=== PATIENT | female | born 1945 | race Caucasian/White ===

== ENCOUNTER 2020-09-23 15:59 | Outpatient (CLI) | payer MEDICARE ==
[2020-09-23] MEDS ORDERED: EVOL140S2 INJ (16:45)
[2020-09-23] MEDS ORDERED: magnesium PO (16:45)
[2020-09-23] MEDS ORDERED: LIDO700A20 TD (16:45)
[2020-09-23] MEDS ORDERED: ESCI10TA10 PO (16:45)
[2020-09-23] MEDS ORDERED: DICL1PAT13 TD (16:45)
[2020-09-23] MEDS ORDERED: vitamin d PO (16:45)
[2020-09-23] MEDS ORDERED: NAPR-685 PO (16:45)
[2020-09-23] MEDS ORDERED: LORA-446 PO (16:45)
[2020-09-23] MEDS ORDERED: melatonin PO (16:45)
[2020-09-23] MEDS ORDERED: SITA100T PO (16:45)
[2020-09-23] MEDS ORDERED: DILT180C72 PO (16:45)
[2020-09-23] MEDS ORDERED: METF500T17 PO (16:45)
[2020-09-23] MEDS ORDERED: CYAN1TAB29 PO (16:45)
[2020-09-23] MEDS ORDERED: DULA0.75 INJ (16:45)
[2020-09-23] MEDS ORDERED: VENL150C6 PO (16:45)
[2020-09-23 17:26] LABS: ALBUMIN 3.9 g/dL (3.4-5.0); ANION GAP 8 mmol/L (5-15); CALCIUM 9.6 mg/dL (8.5-10.1); CHLORIDE 109 mmol/L (98-107)
[2020-09-23 17:29] LABS: ALANINE AMINOTRANSFERASE 91 U/L (12-78); ALKALINE PHOSPHATASE 77 U/L (45-117); BILIRUBIN,TOTAL 0.4 mg/dL (0.2-1.0); CREATININE 0.71 mg/dL (0.55-1.02); TOTAL PROTEIN 7.3 g/dL (6.4-8.2)
== END 2020-09-23 23:59 | disposition home or self-care (01) ==
LOC: STAR 15:59
PROVIDERS: ATTEND Surgery
DX: Z01.812 Encounter for preprocedural laboratory examination (principal); Z20.822 Contact with and (suspected) exposure to COVID-19; R94.31 Abnormal electrocardiogram [ECG] [EKG]
CPT/HCPCS: 36415; 80053; 93005; U0003

== ENCOUNTER 2020-09-27 06:01 | Day surgery (SDC) | payer MEDICARE ==
[~2020-09-27] VITALS: Ht 177.8 cm; Wt 116.0 kg
[~2020-09-27 06:01] MED LIST: CYAN1TAB29 PO; DICL1PAT13 TD; DILT180C72 PO; DULA0.75 INJ; ESCI10TA10 PO; EVOL140S2 INJ; LIDO700A20 TD; LORA-446 PO; METF500T17 PO; NAPR-685 PO; SITA100T PO; VENL150C6 PO; magnesium PO; melatonin PO; vitamin d PO
[2020-09-27 06:46] VITALS: BP 158/66
[2020-09-27] MEDS ORDERED: BUPIVACAINE/PF 0.5% ONE (06:56)
[2020-09-27] MEDS ORDERED: CHLORHEXIDINE 15 ML UDC PO ONE (07:00)
[2020-09-27] MEDS ORDERED: LACTATED RINGERS 1,000 ML IV SCH (07:00)
[2020-09-27] MEDS ORDERED: INDOCYANINE GREEN 25 MG VIAL ONE (07:14)
[2020-09-27] MEDS ORDERED: INDOCYANINE GREEN 25 MG VIAL IVPush STA (07:14)
[2020-09-27] MEDS ORDERED: FENTANYL PF 250 MCG/5ML ONE (07:20)
[2020-09-27] MEDS ORDERED: METOPROLOL 1 MG/ML, 5ML ONE (07:28)
[2020-09-27] MEDS ORDERED: ONDANSETRON 2MG/ML, 2ML ONE ×3 (07:28→08:13)
[2020-09-27] MEDS ORDERED: CEFAZOLIN 1,000 MG ONE ×2 (08:10→08:13)
[2020-09-27] MEDS ORDERED: ROCURONIUM 10MG/ML,5ML ONE ×2 (08:10→08:13)
[2020-09-27] MEDS ORDERED: SUGAMMADEX 200 MG/2 ML IVPush ONE (08:10)
[2020-09-27] MEDS ORDERED: PROPOFOL 10 MG/ML, 20ML ONE ×2 (08:10→08:13)
[2020-09-27] MEDS ORDERED: GLYCOPYRROLATE 0.2MG/1ML, 5ML ONE ×2 (08:10→08:13)
[2020-09-27] MEDS ORDERED: NEOSTIGMINE 1 MG/ML, 10ML ONE ×2 (08:10→08:13)
[2020-09-27] MEDS ORDERED: KETOROLAC 30 MG/1 ML ONE (08:10)
[2020-09-27] MEDS ORDERED: SUCCINYLCHOLINE 20 MG/ML, 10ML ONE ×2 (08:10→08:13)
[2020-09-27] MEDS ORDERED: CEFOTETAN 2 GM ONE (08:13)
[2020-09-27] MEDS ORDERED: OXYC1TAB14 PO (08:25)
[2020-09-27] MEDS ORDERED: LABETALOL 5MG/ML, 20ML IV PRN (08:30)
[2020-09-27] MEDS ORDERED: MEPERIDINE/PF 25MG/0.5ML IVPush PRN (08:30)
[2020-09-27] MEDS ORDERED: FENTANYL PF 100 MCG/2ML IV PRN (08:30)
[2020-09-27] MEDS ORDERED: DIAZEPAM 5 MG/ML, 2ML IVPush PRN (08:30)
[2020-09-27] MEDS ORDERED: PROMETHAZINE 25 MG/ML, 1ML IV PRN (08:30)
[2020-09-27] MEDS ORDERED: OXYcodone 5 MG/5 ML ORAL.SOL UDC PO PRN (08:30)
[2020-09-27] MEDS ORDERED: hydrALAzine 20 MG/ML, 1ML IV PRN (08:30)
[2020-09-27] MEDS ORDERED: ACETAMINOPHEN 325 MG TABLET PO PRN (08:30)
[2020-09-27] MEDS ORDERED: ALBUTEROL SULFATE 2.5 MG/3 ML NPPB PRN (08:30)
[2020-09-27] MEDS ORDERED: HYDROmorphone 2 MG/ML, 1ML IVPush PRN (08:30)
[2020-09-27] MEDS ORDERED: MEPERIDINE/PF 25MG/ML,1ML ONE (08:52)
[2020-09-27] MEDS ORDERED: ACETAMINOPHEN 650 MG/20.3 ML UDC ONE (08:52)
[2020-09-27] MEDS ORDERED: OXYcodone 5 MG/5 ML ORAL.SOL UDC ONE (08:52)
== END 2020-09-27 12:10 | disposition home or self-care (01) ==
LOC: OUT 06:01
PROVIDERS: ATTEND Surgery
DX: K80.10 Calculus of gallbladder with chronic cholecystitis without obstruction (principal); K82.8 Other specified diseases of gallbladder; E11.9 Type 2 diabetes mellitus without complications; I25.10 Atherosclerotic heart disease of native coronary artery without angina pectoris; I10 Essential (primary) hypertension; E78.5 Hyperlipidemia, unspecified; I48.91 Unspecified atrial fibrillation; E66.01 Morbid (severe) obesity due to excess calories; Z68.37 Body mass index [BMI] 37.0-37.9, adult; Z79.899 Other long term (current) drug therapy; Z98.890 Other specified postprocedural states
CPT/HCPCS: 47562; 82962; 88304; J1885; J2175; J2405; J2704; J3010; J7120; J0690; J2710; J0330